=== PATIENT | female | born 1960 | race Caucasian/White ===

== ENCOUNTER 2018-01-12 22:08 | Observation (INO) | payer OTHER, SELFPAY ==
[2018-01-12 22:19] VITALS: BP 172/69; PULSE 94; RESP 16; TEMP 37.7; O2SAT 98; BMI 29.1
--- NOTE | 2018-01-12 22:25 | DI.RAD.S_ITS ---
PROCEDURE: XR ANKLE LT MIN 3V INDICATIONS: injury TECHNIQUE: 30 views of the ankle were acquired. COMPARISON: [facility], CR, XR FOOT LT MIN 3V, 01/12/2018, 22:07. FINDINGS: Bones: There is a transverse fracture involving the medial malleolus was 1.3 cm distal displacement. A spiral fracture is noted in the distal fibula with 1.2 cm lateral displacement.. Ankle mortise is disrupted with lateral subluxation of talus and widening of the tibiotalar joint space medially. No suspicious bony lesions. Soft tissues: Small tibiotalar joint effusion. Achilles tendon appears normal. Soft tissue swelling is present. IMPRESSION: 1. Spiral fracture distal fibula at the ankle mortise. 2. Displaced medial malleolus fracture. 3. Lateral subluxation of talus at the tibiotalar joint with widening of joint space medially. Dictated by: Lukas Wooten M.D. on 01/13/2018 at 9:20 Approved by: Lukas Wooten M.D. on 01/13/2018 at 9:24
--- NOTE | 2018-01-12 22:26 | DI.RAD.S_ITS ---
PROCEDURE: XR FOOT LT MIN 3V INDICATIONS: injury TECHNIQUE: 3 views of the foot were acquired. COMPARISON: None. FINDINGS: Bones: Medial and lateral malleolar fractures are present. No suspicious bony lesions. Soft tissues: Small tibiotalar joint effusion. Achilles tendon appears normal. IMPRESSION: Medial and lateral malleolar fractures. Please see left ankle x-ray for detail. Dictated by: Lukas Wooten M.D. on 01/13/2018 at 10:03 Approved by: Lukas Wooten M.D. on 01/13/2018 at 10:04
--- NOTE | 2018-01-12 23:25 | ED.LOWEXIN ---
HPI - Extremity Injury (Lower) General Chief Complaint: Extremity Injury, Lower Stated Complaint: LEFT ANKLE INJURY Time Seen by Provider: 01/12/18 22:13 Source: patient and family Mode of arrival: wheelchair Limitations: no limitations History of Present Illness HPI Narrative: Patient states she was walking on a muddy past at her house, when she slipped and twisted her ankle. As she fell, the patient's states he heard a loud report, ?like a 22 rifle? and heard the patient screaming. Patient states when she looked at her foot and ankle, the foot was at a 90 degree angle to the joint. She reduced the ankle herself, and called EMS. Patient was placed in a SHARON splint by EMS and sent on the [place] from [facility] to here. Patient denies any other injuries. She denies prior injury to the ankle itself. MD complaint: ankle injury (Left) Onset (ago): hour(s) Injury: Left: ankle Type of Injury: inversion Place: home Severity scale (1-10): 10 Related Data Previous Rx's Medication Instructions Recorded aspirin 325 mg PO DAILY #42 tab 01/13/18 docusate sodium [Colace] 100 mg PO BID #30 cap 01/13/18 ondansetron 4 mg PO Q8-12H PRN #7 tab 01/13/18 oxycodone 5 mg PO Q4H PRN #40 tab 01/13/18 walker #1 each 01/14/18 Allergies Allergy/AdvReac Type Severity Reaction Status Date / Time codeine AdvReac Nausea Verified 01/13/18 14:30 Review of Systems Review of Systems All systems reviewed & are unremarkable except as noted in HPI and below Constitutional Denies chills, Denies fever(s), Denies lethargy and Denies weakness Eyes Denies change in vision, Denies eye discharge, Denies irritation and Denies loss of vision ENT Ears, Nose, Mouth, and Throat: Denies change in voice, Denies neck pain and Denies sore throat Cardiovascular Denies chest pain, Denies irregular heart rhythm, Denies lightheadedness, Denies palpitations, Denies dyspnea, Denies dyspnea on exertion and Denies orthopnea Respiratory Denies cough, Denies dyspnea, Denies dyspnea on exertion and Denies wheezing Gastrointestinal Gastrointestinal: Denies abdominal pain, Denies change in bowel habits, Denies diarrhea, Denies nausea and Denies vomiting Genitourinary Denies hematuria, Denies flank pain, Denies urinary incontinence and Denies urinary urgency Musculoskeletal Reports joint swelling (With pain, left ankle.) and Denies neck pain Integumentary/Breasts Denies pruritus, Denies erythema, Denies rash and Denies wounds Neurologic Denies confusion, Denies loss of vision and Denies weakness Psychiatric Denies anxiety, Denies confusion, Denies depression, Denies homicidal ideation and Denies suicidal ideation Endocrine Denies palpitations Hematologic/Lymphatic Denies easy bruising Allergic/Immunologic Denies wheezing [facility] Medical History Closed trimalleolar fracture of left ankle (Acute) Diabetes type 2, controlled (Acute) Diabetes type 2, controlled (Acute) Pancreatitis (Acute) Surgical History History of bowel resection (Acute) Social History household members: spouse Smoking Status: Never smoker alcohol intake: never Exam Initial Vital Signs Initial Vital Signs: Vital Signs Temperature 99.8 F H 01/12/18 22:19 Pulse Rate 94 H 01/12/18 22:19 Respiratory Rate 16 01/12/18 22:19 Blood Pressure 172/69 H 01/12/18 22:19 Pulse Oximetry 98 01/12/18 22:19 Const General: cooperative and well developed Nutritional Appearance: well nourished Orientation: alert, awake, oriented x3 and not confused [facility] Head: normocephalic and atraumatic Ears: external ears normal Nose: external nose normal and No nasal discharge Face and sinus: face symmetric and No dry mucous membranes Mouth: oral mucosae normal and moist mucous membranes Eyes General: appearance normal, both eyes and all related structures Eyelids: eyelids normal Conjunctivae: conjunctivae normal Sclera: sclerae normal Pupils: PERRL EOM: EOM intact bilaterally Neck Neck: normal visual inspection, trachea midline, No lymphadenopathy, No midline deformity and No JVD Lymphatic: No lymphedema Chest Chest: normal inspection of the chest Resp Effort & Inspection: normal respiratory effort, able to speak in complete sentences, no respiratory distress and no use of accessory muscles Auscultation: clear to auscultation bilaterally, no rales, no rhonchi and no wheezes Cardio Rate: regular rate Rhythm: regular rhythm Heart Sounds: no click, no gallops, no murmurs and no rubs Pulses: normal peripheral pulses GI Inspection: non-distended Palpation: soft, no hepatosplenomegaly, No guarding, No pulsatile mass and No tender Auscultation: normal bowel sounds Back/Spine/Pelvis Back: No CVA tenderness Cervical Spine: cervical ROM normal and No pain with cervical ROM Thoracic/Lumbar Spine: thoracic and lumbar spine normal to inspection Skin General: no rashes or lesions noted, No jaundice and No petechiae Neuro General: alert, oriented x3, gait normal and no focal motor deficits Speech: speech normal Extrem General: No normal to inspection, No full ROM and no calf tenderness Other: patient has tenderness, edema, and decreased range of motion of her left ankle. She has intact dorsalis pedis and posterior tibial pulses. She is able to wiggle her toes. She has intact sensation in her toes. Psych Appearance: well kempt Mental Status: mental status grossly normal Attitude: cooperative Thought Content: normal and suicidality Judgment: judgment good Course Course Narrative: Patient was stable throughout her stay in the emergency department. She was worked up for her ankle injury, and found to have a bimalleolar fracture with shifting of the mortise. I did speak with Dr. Piper, who is on-call for Orthopedics, and he agreed to admit the patient to his service. I discussed this with the patient and her , who were agreeable to the plan. Patient was treated symptomatically for her pain, and placed in a bulky Rhodes splint. Preoperative chest x-ray and EKG were also performed in the emergency department. Orders Ordered: Discontinued Medications Acetaminophen (Tylenol) 975 mg PO TID [facility] Last Admin: 01/14/18 14:16 Dose: 975 mg Admin: 01/14/18 08:33 Dose: 975 mg Admin: 01/13/18 21:39 Dose: 975 mg Aspirin (Aspirin Ec) 325 mg PO DAILY [facility] Last Admin: 01/14/18 08:34 Dose: 325 mg Benzocaine (Cepacol Lozenge) 1 each PO PRN PRN PRN Reason: Sore Throat Dextrose (D50w) 25 gm IV PRN PRN PRN Reason: Hypoglycemia Docusate Sodium (Colace) 100 mg PO BID [facility] Last Admin: 01/14/18 08:34 Dose: 100 mg Admin: 01/13/18 21:39 Dose: 100 mg Fentanyl (Sublimaze) 50 mcg IV NOW ONE Stop: 01/13/18 15:41 Last Admin: 01/13/18 15:18 Dose: 50 mcg Fentanyl (Sublimaze) 50 mcg IV Q5MIN PRN PRN Reason: Pain, Moderate (4-6) Hydromorphone HCl (Dilaudid) 0.5 mg IV Q5MIN PRN PRN Reason: Pain, Moderate (4-6) Hydroxyzine Pamoate (Vistaril) 25 mg PO NOW PRN PRN Reason: Pain, Mild (1-3) Last Admin: 01/13/18 19:11 Dose: 25 mg Sodium Chloride (Normal Saline 0.9%) 1,000 mls @ 1,000 mls/hr IV BOLUS ONE Stop: 01/13/18 00:53 Last Admin: 01/13/18 02:46 Dose: Sodium Chloride (Normal Saline 0.9%) 1,000 mls @ 125 mls/hr IV CONT [facility] Last Admin: 01/13/18 09:03 Dose: 125 mls/hr Infusion: 01/13/18 09:03 Dose: 125 mls/hr Admin: 01/13/18 01:25 Dose: 125 mls/hr Cefazolin Sodium/Dextrose (Ancef) 2 gm in 100 mls @ 200 mls/hr IV NOW ONE Stop: 01/13/18 09:05 Last Admin: 01/13/18 15:35 Dose: 200 mls/hr Lactated Ringer's (Lactated Ringers) 1,000 mls @ 42 mls/hr IV CONT [facility]Y Last Infusion: 01/13/18 19:21 Dose: 42 mls/hr Admin: 01/13/18 19:21 Dose: 42 mls/hr Infusion: 01/13/18 18:30 Dose: 42 mls/hr Admin: 01/13/18 14:36 Dose: 42 mls/hr Cefazolin Sodium/Dextrose (Ancef) 2 gm in 100 mls @ 200 mls/hr IV Q8H [facility] Stop: 01/13/18 08:29 Last Admin: 01/13/18 20:42 Dose: Admin: 01/13/18 20:42 Dose: Insulin Aspart (Novolog Flexpen) 0 unit SUBCUT [facility]; Protocol Last Admin: 01/14/18 12:14 Dose: 4 unit Admin: 01/14/18 08:32 Dose: 2 unit Admin: 01/13/18 21:38 Dose: 1 unit Meperidine HCl (Demerol) 25 mg IV Q5MIN PRN PRN Reason: Pain or shivering Metoclopramide HCl (Reglan) 10 mg IV NOW PRN PRN Reason: Nausea And Vomiting Midazolam HCl (Versed) 1 mg IV NOW ONE Stop: 01/13/18 15:41 Last Admin: 01/13/18 15:18 Dose: 1 mg Morphine Sulfate (Morphine) 4 mg IV Q4HR PRN PRN Reason: Pain, Moderate (4-6) Last Admin: 01/13/18 05:27 Dose: 4 mg Admin: 01/13/18 01:25 Dose: 4 mg Morphine Sulfate (Morphine) 2 mg IV Q2HR PRN PRN Reason: Pain, Moderate (4-6) Last Admin: 01/13/18 13:13 Dose: 2 mg Admin: 01/13/18 11:19 Dose: 2 mg Admin: 01/13/18 09:03 Dose: 2 mg Morphine Sulfate (Morphine) 0.5 mg IV Q1HR PRN PRN Reason: Pain, Mild (1-3) Last Admin: 01/14/18 07:50 Dose: 0.5 mg Admin: 01/14/18 06:36 Dose: 0.5 mg Naloxone HCl (Narcan) 0.2 mg IV Q2MIN PRN PRN Reason: Opiate Reversal Ondansetron HCl (Zofran Odt) 4 mg PO NOW ONE Stop: 01/12/18 23:28 Last Admin: 01/12/18 23:37 Dose: 4 mg Ondansetron HCl (Zofran) 4 mg IV Q4HR PRN PRN Reason: Nausea And Vomiting Ondansetron HCl (Zofran) 4 mg IV NOW PRN PRN Reason: Nausea And Vomiting Ondansetron HCl (Zofran Odt) 4 mg PO Q4HR PRN PRN Reason: Nausea And Vomiting Ondansetron HCl (Zofran) 4 mg IV Q4HR PRN PRN Reason: Nausea And Vomiting Oxycodone HCl (Percolone) 5 mg PO Q3HR PRN PRN Reason: Pain, Moderate (4-6) Last Admin: 01/14/18 04:50 Dose: 5 mg Admin: 01/14/18 01:44 Dose: 5 mg Oxycodone HCl (Percolone) 10 mg PO Q3HR PRN PRN Reason: Pain, Severe (7-10) Last Admin: 01/14/18 14:16 Dose: 10 mg Admin: 01/14/18 11:24 Dose: 10 mg Admin: 01/14/18 08:35 Dose: 10 mg Oxycodone/Acetaminophen (Percocet 5/325) 2 tab PO NOW ONE Stop: 01/12/18 23:28 Last Admin: 01/12/18 23:37 Dose: 2 tab Sodium Biphosphate/Sodium Phosphate (Fleet Enema) 1 each HI PRN PRN PRN Reason: Constipation Vital Signs - 8 hr 01/12/18 22:19 Temperature 99.8 F H Pulse Rate 94 H Respiratory Rate 16 Blood Pressure 172/69 H Pulse Oximetry 98 MDM - Extremity Injury (Lower) Medical Records Attestation: I reviewed the patient's medical records. Lab Data Attestation: I reviewed the patient's lab results. Result diagrams: 01/13/18 00:35 01/13/18 00:35 Lab Results 01/13/18 01/13/18 01/13/18 Range/Units 00:35 00:35 11:11 WBC 12.9 H (4.5-11.0) X10^3/uL RBC 4.51 (4.0-5.2) X10^6/uL Hgb 13.3 (12.0-16.0) g/dL Hct 39.1 (36-46) % MCV 86.8 (80-100) fL MCH 29.5 (26-34) PG MCHC 34.0 (30-36) % RDW 13.0 (11.6-14.8) % Plt Count 354 (150-400) X10^3/uL Neut % (Auto) 64.8 (50-75) % Lymph % (Auto) 26.9 (25-40) % Barry % (Auto) 6.9 (3-14) % Eos % (Auto) 0.7 L (2-4) % Baso % (Auto) 0.7 (0-2) % Neut # (Auto) 8300 H (4203-4528) /uL Sodium 141 (137-145) mmol/L Potassium 4.0 (3.4-5.1) mmol/L Chloride 106 (98-107) mmol/L Carbon Dioxide 23 (22-32) mmol/L BUN 19 H (7-17) mg/dL Creatinine 0.70 (0.52-1.04) mg/dL Estimated GFR > 60.0 (>60) mL/min BUN/Creatinine Ratio 27.1 H (6-22) Glucose 164 H (70-100) mg/dL Hemoglobin A1c 7.5 H (4.0-6.0) % Calcium 9.7 (8.4-10.2) mg/dL Total Bilirubin 0.6 (0.2-1.3) mg/dL AST 27 (14-36) IU/L ALT 27 (9-52) IU/L Alkaline Phosphatase 85 (38-126) U/L Total Protein 7.1 (6.3-8.2) g/dL Albumin 4.4 (3.5-5.0) g/dL Globulin 2.7 (1.7-4.1) g/dL Albumin/Globulin Ratio 1.6 (1.0-2.8) Point of Care Testing Glucose POC 308 Imaging Data Left ankle x-ray: Attestation: I personally reviewed and interpreted this imaging study as follows: My impression: left ankle bimalleolar fracture Radiologist's impression: PROCEDURE: XR ANKLE LT MIN 3V INDICATIONS: injury TECHNIQUE: 30 views of the ankle were acquired. COMPARISON: [facility], CR, XR FOOT LT MIN 3V, 01/12/2018, 22:07. FINDINGS: Bones: There is a transverse fracture involving the medial malleolus was 1.3 cm distal displacement. A spiral fracture is noted in the distal fibula with 1.2 cm lateral displacement.. Ankle mortise is disrupted with lateral subluxation of talus and widening of the tibiotalar joint space medially. No suspicious bony lesions. Soft tissues: Small tibiotalar joint effusion. Achilles tendon appears normal. Soft tissue swelling is present. IMPRESSION: 1. Spiral fracture distal fibula at the ankle mortise. 2. Displaced medial malleolus fracture. 3. Lateral subluxation of talus at the tibiotalar joint with widening of joint space medially. Dictated by: Lukas Wooten M.D. on 01/13/2018 at 9:20 Approved by: Lukas Wooten M.D. on 01/13/2018 at 9:24 left foot x-ray: Attestation: I personally reviewed and interpreted this imaging study as follows: Radiologist's impression: PROCEDURE: XR FOOT LT MIN 3V INDICATIONS: injury TECHNIQUE: 3 views of the foot were acquired. COMPARISON: None. FINDINGS: Bones: Medial and lateral malleolar fractures are present. No suspicious bony lesions. Soft tissues: Small tibiotalar joint effusion. Achilles tendon appears normal. IMPRESSION: Medial and lateral malleolar fractures. Please see left ankle x-ray for detail. Dictated by: Lukas Wooten M.D. on 01/13/2018 at 10:03 Approved by: Lukas Wooten M.D. on 01/13/2018 at 10:04 Chest x-ray: Attestation: I personally reviewed and interpreted this imaging study as follows: My impression: negative Radiologist's impression: PROCEDURE: XR CHEST 1V INDICATIONS: pre-op chest xray TECHNIQUE: One view of the chest was acquired. COMPARISON: None. FINDINGS: Surgical changes and devices: None. Lungs and pleura: No pleural effusions or pneumothorax. Lungs are clear. Mediastinum: Mediastinal contours appear normal. Heart size is normal. Bones and chest wall: No suspicious bony lesions. Overlying soft tissues appear unremarkable. IMPRESSION: No acute cardiopulmonary disease. Dictated by: Lukas Wooten M.D. on 01/13/2018 at 9:59 Approved by: Lukas Wooten M.D. on 01/13/2018 at 9:59 ECG Data Attestation: I personally reviewed and interpreted this ECG as follows: ( see below) Prior ECG tracings: not available for review Interpretation: 12 lead EKG performed on January 13, 2018 at 12:16 a.m.: Regular ventricular rhythm with a rate of 90 beats per minute HI intervals 149 milliseconds QRS duration 92 millisecond QTC interval 421 milliseconds axis normal interpretation: Normal sinus rhythm; normal EKG interpreted by ED MD Discharge Plan Departure Patient Disposition: Admitted as Observation Clinical Impression: Bimalleolar fracture of left ankle Discharge Date/Time: 01/12/18 23:54 Interventions: ED Discharge Assessment Last Done: 01/13/18 01:41 Admit Date/Time: 01/12/18 23:51 Admit Provider: Terrie Piper
[2018-01-12] MEDS: OXYCODONE/ACETAMINOPHEN 5/325 TABLET 2 TAB PO (23:37)
[2018-01-12] MEDS: ONDANSETRON 4 MG ODT PO (23:37)
--- NOTE | 2018-01-12 23:54 | DI.RAD.S_ITS ---
PROCEDURE: XR CHEST 1V INDICATIONS: pre-op chest xray TECHNIQUE: One view of the chest was acquired. COMPARISON: None. FINDINGS: Surgical changes and devices: None. Lungs and pleura: No pleural effusions or pneumothorax. Lungs are clear. Mediastinum: Mediastinal contours appear normal. Heart size is normal. Bones and chest wall: No suspicious bony lesions. Overlying soft tissues appear unremarkable. IMPRESSION: No acute cardiopulmonary disease. Dictated by: Lukas Wooten M.D. on 01/13/2018 at 9:59 Approved by: Lukas Wooten M.D. on 01/13/2018 at 9:59
[2018-01-13] VITALS (16 sets, daily range): BP systolic 126–157; BP diastolic 64–98; PULSE 79–109; RESP 11–18; TEMP 36.1–37.6; O2SAT 93–99; BMI 30.4
--- NOTE | 2018-01-13 | DI.RAD.S_ITS ---
PROCEDURE: XR TIBIA FIBULA RT 2V INDICATIONS: fracture TECHNIQUE: 2 views of the tibia and fibula were acquired. COMPARISON: None. FINDINGS: Bones: There is acute transverse fracture involving medial malleolus. Acute oblique fracture involving distal fibular shaft is also seen. There is disruption of ankle mortise with slight posterior and lateral subluxation of the talar dome in relation to tibial plafond. No proximal tibial or fibular fracture is seen. Soft tissues: No suspicious soft tissue calcifications or masses. IMPRESSION: Acute displaced fractures involving medial malleolus and distal fibular shaft with disruption of ankle mortise and subluxation at tibiotalar joint as above. Dictated by: Danny Anderson M.D. on 01/13/2018 at 9:32 Approved by: Danny Anderson M.D. on 01/13/2018 at 9:34
--- NOTE | 2018-01-13 | DI.RAD.S_ITS ---
PROCEDURE: XR ANKLE LT 2V INDICATIONS: LEFT ANKLE FRACTURE REPAIR TECHNIQUE: 4 intraoperative fluoroscopic views of the ankle were acquired. COMPARISON: [facility], CR, XR ANKLE LT MIN 3V, 01/12/2018, 22:04. FINDINGS: Bones: There is internal fixation of distal fibular shaft and medial malleolus. There is also fixation of distal tibial fibular syndesmosis. Ankle alignment is anatomic. IMPRESSION: Internal fixation of medial malleolus and distal fibular shaft under fluoroscopic guidance. Dictated by: Danny Anderson M.D. on 01/13/2018 at 18:29 Approved by: Danny Anderson M.D. on 01/13/2018 at 18:31
--- NOTE | 2018-01-13 | DI.CT.S_ITS ---
PROCEDURE: CT LE LT W CON INDICATIONS: preop planning ankle fracture TECHNIQUE: Noncontrast 1-1.5 mm axial sections acquired from above the tibiotalar joint to the bottom of the calcaneus, with coronal and sagittal reformats. COMPARISON: [facility], CR, XR TIBIA FIBULA LT 2V, 01/13/2018, 9:02. FINDINGS: Image quality: Excellent. Bones: Medial malleolar fracture is seen, with lateral displacement of the distal dominant fragment measuring approximately 5 mm. Associated gross articular tibiotalar surface irregularity. Lateral malleolar fracture with posterolateral displacement of the dominant fracture fragment. Posterior malleolar fracture is seen with mild displacement and extension to the distal tibial articular surface. The talar dome appears grossly intact. There is subluxation of the tibiotalar joint and gross articular surface incongruity. Incidental unfused accessory navicular. Soft tissues: Circumferential subcutaneous swelling is seen. There are numerous sub-5 mm fracture fragments seen in and about the tibiotalar joint. Alignment of the subtalar joint appears grossly anatomic. No definite widening of the distal tibiofibular syndesmotic interval. IMPRESSION: Trimalleolar fractures as above with subluxation of the tibiotalar joint and gross articular surface incongruity. Dictated by: Roosevelt Lr M.D. on 01/13/2018 at 10:26 Approved by: Roosevelt Lr M.D. on 01/13/2018 at 10:31
[2018-01-13 00:44] LABS: Add Manual Diff / Slide Review NO; Basophils Percent Auto 0.7 % (0-2); Eosinophils Percent Auto 0.7 % (2-4); Hematocrit 39.1 % (36-46); Hemoglobin 13.3 g/dL (12.0-16.0); Lymphocytes Percent Auto 26.9 % (25-40); Mean Corpuscular Hemoglobin 29.5 PG (26-34); Mean Corpuscular Volume 86.8 fL (80-100); Monocytes Percent Auto 6.9 % (3-14); Neutrophils Absolute Auto 8300 /uL (3000-5900); Neutrophils Percent Auto 64.8 % (50-75); Platelet Count 354 X10^3/uL (150-400); Red Blood Cell Count 4.51 X10^6/uL (4.0-5.2); White Blood Cell Count 12.9 X10^3/uL (4.5-11.0)
--- NOTE | 2018-01-13 00:48 | PC.NURSE ---
posterior and stirrup splint applied. padded between skin and splint. pos c/s. provider inspected and approved splint. Pt tolerated well. pt stated it feels better for sure.
[2018-01-13 00:49] LABS: Alanine Aminotransferase 27 IU/L (9-52); Albumin 4.4 g/dL (3.5-5.0); Albumin Globulin Ratio 1.6 (1.0-2.8); Alkaline Phosphatase 85 U/L (38-126); Aspartate Aminotransferase 27 IU/L (14-36); BUN Creatinine Ratio 27.1 (6-22); Bilirubin Total 0.6 mg/dL (0.2-1.3); Blood Urea Nitrogen 19 mg/dL (7-17); Calcium 9.7 mg/dL (8.4-10.2); Carbon Dioxide 23 mmol/L (22-32); Chloride 106 mmol/L (98-107); Estimated Glomerular Filt Rate > 60.0 mL/min (>60); Globulin 2.7 g/dL (1.7-4.1); Glucose 164 mg/dL (70-100); HEMOLYSIS 29 (0-50); Sodium 141 mmol/L (137-145); Total Protein 7.1 g/dL (6.3-8.2)
[2018-01-13] MEDS: MORPHINE 2 MG/ML INJ 4 MG IV ×2 (01:25→05:27)
[2018-01-13] MEDS: SODIUM CHLORIDE 0.9% 1,000 ML 125 ML IV ×2 (01:25→09:03)
[2018-01-13] MEDS: MORPHINE 2 MG/ML INJ IV ×3 (09:03→13:13)
--- NOTE | 2018-01-13 09:07 | CM.DANOTE ---
DCP: Case received, EMR reviewed and met with patient. Introduced self and role. DCP template completed with information currently available. Patient is a 57 year old female who admitted yesterday evening to the care of the hospitalist team. PCP: Dr. Rahman. Payer: confirmed: [facility]. Patient had a fall outside of her home, resulting in fracture of her left ankle. Lives on [address] with her , has sons that live close by as well. Patient alert and oriented, was in room when this case coordinator met her. Patient is having ankle surgery this afternoon. P: DCP to continue to assess, after results of surgery, may need home health P.T, if unable to go to outpatient. Giselle Pope RN/First Line Supervisor
--- NOTE | 2018-01-13 09:11 | P.HP_ITS ---
History of Present Illness Date Patient Seen: 01/13/18 Time Patient Seen: 08:40 Chief complaint: LEFT ANKLE INJURY Narrative: Patient is a 57-year-old female from [facility] that slipped on wet grass while caring her dog on a steep slope yesterday evening approximately 6:00 p.m. per ED report the patient's heard a scream and allowed the noise and found the patient had fallen. She had a gross deformity of her left ankle with the foot rotated out and 90? per report. She states she moved this back into position. She was seen by the EMS services on [facility] evaluated thought to have a ankle fracture and was splinted. She came by car over the [place] to the [facility] Emergency Room and was evaluated and found to have a bimalleolar ankle fracture dislocation. My partner bonbon dipper Dr. Piper was consulted and the patient was admitted to the hospital, and maintained NPO after midnight. I was asked to evaluate the patient's closed ankle fracture and assume management. The patient endorses acute pain and deformity at the time of injury to her left ankle. She denies any injury to any other extremity and denies any pain, shortness of breath, chest pain, abdominal pain, numbness or tingling. She denies any headaches. She does state her mouth is a little dry. She denies any pain at the knee on the left side and states all of her pain is down by the ankle. She does endorse swelling. She endorses a past medical history significant for diabetes type 2 however she states this is controlled on diet and exercise. She did for short time takes metformin but could not tolerate side effects. She also has a past medical history for bowel resections times to several years ago she does not report any current abdominal pain or difficulties. She denies any past history of a blood clot or embolisms or coagulopathies. Does not take any anticoagulants. She states she takes no regular medications at home. She does have some nausea with codeine but otherwise no allergies. Rest and elevation ice and pain medications help her pain. She is hoping to be discharged home after surgery. She has help available at home including her who stayed with her overnight. Patient History Medical History Closed trimalleolar fracture of left ankle (Acute) Diabetes type 2, controlled (Acute) Diabetes type 2, controlled (Acute) Pancreatitis (Acute) Surgical History History of bowel resection (Acute) Comment: bowel resections x2 Family & Social History Family History: Reviewed 01/13/18 by Yudith Babb MD Family history unavailable: No Social History: household members spouse,family Prior Living Arrangements House Safety & Behavioral: Feels Safe in Current Yes Environment Suicidal Ideation Description None Tobacco & Substance use: Smoking Status Never smoker alcohol intake never Substance Use Type does not use Meds Home Medications Medication Instructions Recorded Confirmed Type aspirin 325 mg PO DAILY #42 tab 01/13/18 Rx docusate sodium [Colace] 100 mg PO BID #30 cap 01/13/18 Rx ondansetron 4 mg PO Q8-12H PRN #7 tab 01/13/18 Rx oxycodone 5 mg PO Q4H PRN #40 tab 01/13/18 Rx Allergies Allergy/AdvReac Type Severity Reaction Status Date / Time codeine AdvReac Nausea Verified 01/13/18 14:30 Review of Systems Constitutional Constitutional: Reports system reviewed and no additional complaints, except as documented Eyes Comments: Denies changes in vision ENT Ears, Nose, Mouth, and Throat: Yes system reviewed; no additional complaints, except as documented Cardiovascular Comments: Denies shortness of breath denies chest pain Respiratory Comments: Denies shortness of breath denies wheezing Gastrointestinal Comments: History 2 bowel resection no issues today. No abdominal pain. Genitourinary Comments: No incontinence Musculoskeletal Musculoskeletal: Reports as per HPI Comments: Denies other aches and pains or injuries except for with exception to left ankle Integumentary/Breasts Comments: No skin lesions Neurologic Comments: Denies numbness tingling radiculopathy or neuropathy Psychiatric Psychiatric: Reports system reviewed and no additional complaints, except as documented Endocrine Comments: History of diabetes type 2 controlled, no medications. Tried metformin but cannot tolerate side effects Hematologic/Lymphatic Hematologic/Lymphatic: Reports system reviewed and no additional complaints, except as documented Allergic/Immunologic Allergic/Immunologic: Reports system reviewed and no additional complaints, except as documented Exam Vital Signs (past 8 hours): - 01/13/18 01:54 01/13/18 05:30 Temperature 99.6 F 99.1 F Pulse Rate 91 H 84 Respiratory Rate 16 18 Blood Pressure 143/98 H 131/72 Pulse Oximetry 99 95 Oxygen Delivery Method Room Air Narrative Exam Narrative: Patient is alert and oriented female in no acute distress she appears stated age. Oriented to person place time Normocephalic atraumatic Respiratory exam lungs are clear to auscultation bilaterally breathing is unlabored on room air Cardiac exam: Regular rate and rhythm no murmur Abdominal exam: Midline vertical scar well healed abdomen soft nontender, nondistended Musculoskeletal examination: Full range of motion and no tenderness to palpation of the bilateral upper extremities and right lower extremity. No bruising or ecchymosis no skin lesions. Sensation intact to light touch in all distributions and motor strength 5/5 in all muscle distributions. Painless neck range of motion. Left lower extremity is in a splint. No pain or swelling about the knee no redness erythema or signs or symptoms of infection. No pain with proximal tib- fib squeeze. Toes are well perfused with brisk capillary refill less than 3 sec. Palpable dorsalis pedis pulse. Swelling of the left ankle without skin lesion. Compartments compressible. Sensation grossly intact to light touch in superficial peroneal, deep peroneal, sural, saphenous nerve distributions Objective Imaging X-ray left ankle: My impression: Three views left ankle AP, mortise, lateral demonstrate a displaced ankle fracture dislocation with medial malleolar fracture and spiral fracture of the distal fibula with lateral displacement of the talus . there is irregualrity at the postop tibia which may represent a small posterior malleolus fracture. Radiologist's impression: IMPRESSION: 1. Spiral fracture distal fibula at the ankle mortise. 2. Displaced medial malleolus fracture. 3. Lateral subluxation of talus at the tibiotalar joint with widening of joint space medially. Dictated by: Lukas Wooten M.D. on 01/13/2018 at 9:20 Approved by: Lukas Wooten M.D. on 01/13/2018 at 9:24 ECG: pending X-rays left tib-fib: My impression: AP and lateral views left tib-fib displaced trimalleolar ankle fracture with lateral subluxation of the mortise. No proximal tib-fib fracture Radiologist's impression: IMPRESSION: Acute displaced fractures involving medial malleolus and distal fibular shaft with disruption of ankle mortise and subluxation at tibiotalar joint as above. Dictated by: Danny Anderson M.D. on 01/13/2018 at 9:32 Approved by: Danny Anderson M.D. on 01/13/2018 at 9:34 Left foot x-ray: My impression: Three views left foot AP oblique and lateral demonstrate no obvious fractures of foot there is an accessory navicular bone and limited imaging of the known trimalleolar ankle fracture. CT scan left lower extremity: My impression: Trimalleolar ankle fracture with small displaced fragments within the tibiotalar joint. Minimal displacement of the small posterior lateral posterior malleolus fragment. Displaced lateral malleolus fracture with comminution. Displaced medial malleolus fracture. Radiologist's impression: IMPRESSION: Trimalleolar fractures as above with subluxation of the tibiotalar joint and gross articular surface incongruity. Dictated by: Roosevelt Lr M.D. on 01/13/2018 at 10:26 Labs Result Diagrams: 01/13/18 00:35 01/13/18 00:35 Labs: Laboratory Results - last 24 hr 01/13/18 01/13/18 00:35 00:35 WBC 12.9 H RBC 4.51 Hgb 13.3 Hct 39.1 MCV 86.8 MCH 29.5 MCHC 34.0 RDW 13.0 Plt Count 354 Neut % (Auto) 64.8 Lymph % (Auto) 26.9 [place] % (Auto) 6.9 Eos % (Auto) 0.7 L Baso % (Auto) 0.7 Neut # (Auto) 8300 H Sodium 141 Potassium 4.0 Chloride 106 Carbon Dioxide 23 BUN 19 H Creatinine 0.70 Estimated GFR > 60.0 BUN/Creatinine Ratio 27.1 H Glucose 164 H Calcium 9.7 Total Bilirubin 0.6 AST 27 ALT 27 Alkaline Phosphatase 85 Total Protein 7.1 Albumin 4.4 Globulin 2.7 Albumin/Globulin Ratio 1.6 Assessment & Plan (1) Diabetes type 2, controlled: Problem details: Will monitor blood glucose. Patient is not currently take any medication will be on diabetic diet. hemoglobin A1c 7.5. Discussed that diabetic status is a risk factor for wound healing and bone healing problems and may require prolonged nonweightbearing status. Sliding-scale insulin in the hospital patient will follow up with PCP Dr. Rahman for diabetic care. Patient counseled on the importance of glycemic control. Current visit: Yes Status: Acute (2) Closed trimalleolar fracture of left ankle: Problem details: Left closed trimalleolar ankle fracture. Status post open reduction internal fixation. Nonweightbearing left lower extremity times 12 weeks for diabetic ankle fracture. Will start 325 mg aspirin once daily on postop day 1. Will have oxycodone and Tylenol for pain control. Will be up with physical therapy postop day 1 and discharged home postop day 1. Follow-up in [address] Babb Current visit: Yes Status: Acute Plan: Assessment/Plan Narrative: On evaluation of the available imaging I suspect the patient has a trimalleolar ankle fracture dislocation therefore a CT scan was ordered to quantify the posterior malleolus fragment for operative planning. Based on the small fracture on the CT scan my plan would be open reduction internal fixation of the trimalleolar fracture without posterior lip. The Patient is NPO and will continue with elevation and bed rest while on the floor. She will be brought to the operating room when available to undergo open reduction internal fixation of the left trimalleolar ankle fracture dislocation. Once satisfactorily recovered she will be discharged home. She will be nonweightbearing on the left lower extremity. She will follow up in 2 weeks for suture removal. On postoperative day 1 she will start aspirin 325 mg daily for DVT prophylaxis. She does not have any previous history of blood clots or coagulopathy. Her site of surgery was marked Time Spent With Patient Time with patient: less than 15 minutes Quality VTE Deep Vein Thrombosis/Pulmonary Embolism Present on Admission: No
--- NOTE | 2018-01-13 09:11 | PM.DS.1 ---
History of Present Illness Date Patient Seen: 01/13/18 Time Patient Seen: 08:33 Chief complaint: LEFT ANKLE INJURY Narrative: Patient is a 57-year-old female sustained a closed trimalleolar ankle fracture dislocation on the night of admission. She is indicated for operative fixation.jaleel is a 57-year-old female from [facility] that slipped on wet grass while caring her dog on a steep slope yesterday evening approximately 6:00 p.m. per ED report the patient's heard a scream and allowed the noise and found the patient had fallen. She had a gross deformity of her left ankle with the foot rotated out and 90? per report. She states she moved this back into position. She was seen by the EMS services on [facility] evaluated thought to have a ankle fracture and was splinted. She came by car over the [place] to the [facility] Emergency Room and was evaluated and found to have a bimalleolar ankle fracture dislocation. My partner net solutions architect Dr. Piper was consulted and the patient was admitted to the hospital, and maintained NPO after midnight. I was asked to evaluate the patient's closed ankle fracture and assume management. The patient endorses acute pain and deformity at the time of injury to her left ankle. She denies any injury to any other extremity and denies any pain, shortness of breath, chest pain, abdominal pain, numbness or tingling. She denies any headaches. She does state her mouth is a little dry. She denies any pain at the knee on the left side and states all of her pain is down by the ankle. She does endorse swelling. She endorses a past medical history significant for diabetes type 2 however she states this is controlled on diet and exercise. She did for short time takes metformin but could not tolerate side effects. She also has a past medical history for bowel resections times to several years ago she does not report any current abdominal pain or difficulties. She denies any past history of a blood clot or embolisms or coagulopathies. Does not take any anticoagulants. She states she takes no regular medications at home. She does have some nausea with codeine but otherwise no allergies. Rest and elevation ice and pain medications help her pain. She is hoping to be discharged home after surgery. She has help available at home including her who stayed with her overnight. Discharge Providers Date of admission: 01/12/18 23:51 Primary care physician: Lacey Consults: 01/13/18 08:36 Consult to Anesthesiology Routine Comment: Consulting Provider: Anesthesiologist Reason for consultation: Post operative pain managment Discharge provider: Yudith Babb MD Discharge Date: 01/13/18 Summary Discharge Diagnosis: Left trimalleolar ankle fracture Diabetes type 2 Hospital Course: Patient was admitted through the emergency room on January 12, 2018 in the evening for a closed trimalleolar ankle fracture dislocation. She was in the hospital overnight was NPO after midnight and was indicated for surgical fixation of her left unstable ankle fracture dislocation. Following surgical stabilization the patient was admitted to the floor once recovered from anesthesia and tolerating oral pain medication and diet she was trained on crutches and nonweightbearing on the left side. And was discharged home. Her hemoglobin A1c is 7.5. Patient is currently not on any diabetic medication. She will be on sliding scale with a diabetic diet while in the hospital and is encouraged to follow up with her primary care provider for diabetic control. Status at Discharge Cognitive/behavioral status at discharge: Baseline cognitive status. Nonweightbearing on the left side using crutches and/or walker Time Spent with Patient Less than 30 minutes Time spent discussing smoking cessation with patient: 3 to 10 minutes Exam Vital Signs (past 8 hours): - 01/13/18 01:54 01/13/18 05:30 Temperature 99.6 F 99.1 F Pulse Rate 91 H 84 Respiratory Rate 16 18 Blood Pressure 143/98 H 131/72 Pulse Oximetry 99 95 Oxygen Delivery Method Room Air Narrative Exam Narrative: Alert and oriented no acute distress. Lungs clear to auscultation room air Normocephalic atraumatic Cardiac examination regular rate and rhythm no murmur Abdomen exam is soft nontender nondistended Musculoskeletal examination Left lower extremity in the splint. Capillary refill less than 3 sec. Pain controlled. Denies numbness or tingling. Sensation intact. Right lower extremity and bilateral upper extremities full range of motion full strength no numbness or tingling. Sensation intact. Atraumatic Objective Labs Result Diagrams: 01/13/18 00:35 01/13/18 00:35 Labs: Laboratory Results - last 24 hr 01/13/18 01/13/18 00:35 00:35 WBC 12.9 H RBC 4.51 Hgb 13.3 Hct 39.1 MCV 86.8 MCH 29.5 MCHC 34.0 RDW 13.0 Plt Count 354 Neut % (Auto) 64.8 Lymph % (Auto) 26.9 [place] % (Auto) 6.9 Eos % (Auto) 0.7 L Baso % (Auto) 0.7 Neut # (Auto) 8300 H Sodium 141 Potassium 4.0 Chloride 106 Carbon Dioxide 23 BUN 19 H Creatinine 0.70 Estimated GFR > 60.0 BUN/Creatinine Ratio 27.1 H Glucose 164 H Calcium 9.7 Total Bilirubin 0.6 AST 27 ALT 27 Alkaline Phosphatase 85 Total Protein 7.1 Albumin 4.4 Globulin 2.7 Albumin/Globulin Ratio 1.6 Discharge Plan Discharge Plan Patient Disposition: Home Discharge Med Rec/Prescriptions Prescriptions: New aspirin 325 mg tablet 325 mg PO DAILY Qty: 42 RF: 0 docusate sodium [Colace] 100 mg capsule 100 mg PO BID Qty: 30 RF: 0 ondansetron 4 mg tablet,disintegrating 4 mg PO Q8-12H PRN (Reason: nausea and vomiting) Qty: 7 RF: 1 oxycodone 5 mg tablet 5 mg PO Q4H PRN (Reason: pain) Qty: 40 RF: 0 walker Misc Qty: 1 RF: 0 Follow up/Referrals: Yudith Babb MD [Physician] - (Follow up in 2 weeks in the office. Please call to make an appointment.) Provider Discharge Instructions Diet: Carb-consistent/Diabetic Activity: Nonweightbearing left lower extremity. Elevate lower extremity above heart level Skin/Wound/Dressing Care Report to your healthcare provider any signs of infection, such as:: chills, fever, night sweats, increased pain and unusual drainage Dressing: Keep dressing and splint clean dry and intact until follow-up. Elevate lower extremity above heart level Visit Report/Discharge Packet Instructions: DI for Open Reduction Internal Fixation Surgery, Stool Softeners, Ondansetron, Oxycodone, Aspirin Visit Report Forms: Stroke Signs & Symptoms Discharge Data Attending Provider: Terrie Piper Admit Date/Time: 01/12/18 23:51 Discharges patient from system. Discharge Date/Time: 01/14/18 14:30 Quality VTE Deep Vein Thrombosis/Pulmonary Embolism Present on Admission: No
--- NOTE | 2018-01-13 10:17 | PC.NURSE ---
Addendum entered by Helen Leyva R.N. 01/13/18 11:40: pharm - per call to Aliyah in pharmacy, the OR has ancef available in stock and does not need to be sent upstairs. Original Note: Addendum entered by Helen Leyva R.N. 01/13/18 11:24: PAIN - given 2mg iv morphine for lle discomfort 6 on scale 0/10. Original Note: AM NOTE - awake, states lle pain 6 on scale 0/10, splint w/violette wrap over, elev pillow support and ice pack to ankle and lat area, visible toes are pink and pt able to wiggle, npo for surg, in this am and plan for surg around 1300, consent was signed, assisted pt w/bed german to void, later am taken for ct and xr done at bedside, RT in and the ekg done in ER this am was placed in the chart, discussed pain medications with pt and md and dosage changed 2mg q 2 and admin 2mg before xray.
--- NOTE | 2018-01-13 10:55 | PM.PREOP ---
Pre-operative Note Interval Note Pre-op Check: Yes History & Physical Reviewed by Physician and Yes Exam Performed Changes: No
--- NOTE | 2018-01-13 11:03 | P.OP_ITS ---
Operative Date/Time/Diagnoses Date of procedure: 01/13/18 Time of procedure: 16:00 Pre-op diagnosis: 1. Left closed trimalleolar ankle fracture S82.852A 2. Diabetes type 2 E11.9 Post-op diagnosis: same Procedure & Clinicians Procedure: Open reduction internal fixation trimalleolar left ankle fracture without fixation posterior lip CPT code 17801 Same procedure as scheduled: Yes Indications: The patient is a 57-year-old female with a past medical history of diet-controlled diabetes type 2. She sustained a ground level slip and fall last evening and a closed trimalleolar ankle fracture dislocation. The patient has been indicated for operative treatment to restore joint alignment and minimize posttraumatic arthritis. The risks and benefits of the procedure have been discussed with the patient even opportunity to ask questions. The risks of surgery include but are not limited to infection, malunion, nonunion, persistence of pain, wound healing problems, damage to nerves and blood vessels , posttraumatic arthritis, DVT, PE, cardiopulmonary complications and . The patient expressed a thorough understanding of the risks and benefits of surgery and has elected to proceed. Consent was signed today. Patient understands that recovery is variable and may require up to 1 year. The patient also understands that it is critical to strictly elevate the operative leg for the 1st 2 weeks after surgery control swelling and pain. Patient was counseled that no way will be allowed on the surgical leg for minimum of 6 weeks or until the patient is instructed that it is safe to initiate weight- bearing. The patient was initially counseled on cessation of all nicotine progress to promote bone and wound healing. The patient will have DVT prophylaxis with 6 weeks of aspirin starting postop day 1. She has no other history of DVT PE or coagulopathy. Surgeon: Yudith Babb Anesthesia Type: General and Peripheral nerve block Operative Notes Findings: Unstable left trimalleolar ankle fracture was encountered. There were several small joint fragments and these were irrigated and removed from the tibiotalar joint space. A short-segment lateral malleolus fracture was stabilized with a 2.7 lag screw. And a 1/3 tubular neutralization plate was then placed. The medial malleolus fracture was then exposed, again the joint space was irrigated and inspected. There was some scuffing of the talar dome on the medial side this was not full-thickness. The medial malleolar fracture was reduced with 4.0 mm cannulated screws. Syndesmosis was stressed under fluoroscopic guidance and direct visualization this is found to open and was then stabilized by a suture button device. The syndesmosis was then retested and stable. The small posterior malleolus fracture was in acceptable alignment and was treated closed. Closure Type: primary Specimen(s): none sent Implants & Drains: Chris and Nephew 6 hole 1/3 tubular locking plate on the fibula. 2.7 lag screw (2) 4.0 mm cannulated lag screws (Synthes) medial malleolus (1) invsiknot -Chris and Nephew suture button device for syndesmosis stabilization Procedure in detail: In the preoperative holding area, the appropriate limb and sites were marked. The patient was brought to the operating room, placed on operating table and given anesthetic. Following successful levels of anesthesia , the patient was appropriately padded and positioned and secured to the table. A well-padded thigh tourniquet was placed. An SCD was placed on the contralateral leg. For this procedure the patient was positioned supine with a hip bump. The surgical leg was then prepped and draped in the standard sterile fashion. A formal time-out procedure was completed confirming the patient, site and side of surgery and administration of appropriate preoperative antibiotics. All were in agreement. Appropriate implants were available. An Esmarch bandage was used to exsanguinate the limb and the tourniquet was raised on the thigh to 300 mm of mercury and stayed there for 70 min. A posterior lateral incision was made just posterior to the fibula and dissection was carried through the skin subcutaneous tissue to the level of the peroneal sheath. The peroneal sheath was opened and the tendons/ muscle were retracted posterior. The lateral malleolus fracture was exposed and cleaned of debris. The tibiotalar joint was irrigated and small debris was removed. The fracture was then reduced, restoring length rotation anatomic alignment. This was temporarily held with a K-wire and reduction clamp. The fracture was stabilized with a 2.7 lag screw perpendicular to the fracture. This anatomically reduced the fracture and then a 1/3 tubular locking neutralization plate was placed and secured in the standard fashion with nonlocking cortical screws proximally and locking screws distally. Attention was then turned to the medial side of the joint. A standard medial approach to the medial malleolus was made. The saphenous nerve and vein were protected. The periosteum was reflected at the fracture site and this was cleaned out and again the joint was irrigated of debris and then the medial malleolus fracture was reduced with a pointed reduction clamp. There was a small area of scuffing on the medial talar dome this was not full-thickness damage. It was gently debrided. Additionally at the posterior aspect of the medial malleolus the level of the fracture the posterior tibialis tendon was visualized and there was a small than 25% tear of the sheath and into the tendon. A figure-eight Vicryl suture was placed in the posterior tibialis tendon repairing the small laceration. Next, the medial malleolus fracture was reduced and held with a reduction clamp. Two parallel K-wires were then placed in the alignment was checked on x-rays to confirm adequate positioning. Wires were then sequentially overdrilled and (2)4.0 mm Synthes cannulated lag screws were placed length 46 mm. Anatomic alignment and reduction was obtained. Attention was then turned to the syndesmosis. The syndesmosis was stressed under fluoroscopy and with the Cotton test. This was also directly visualized. This was felt to unstable, with most instability in the a to P direction. Therefore the syndesmosis was stabilized with a Chris and Nephew in invisiknot suture button device. Stability was confirmed under fluoro. There was adequate alignment of the small posterior malleolus fracture, so this was treated closed. Wounds were irrigated. I was quite satisfied with result clinically and radiographically. Tourniquet was released and hemostasis was achieved. Deep tissue closure was obtained with 2 O Vicryl and subcutaneous closure with 4 -0Monocryl and skin with 3-O nylon. A Sterile bulky dressing with Rhodes cotton and a U splint were applied. All counts were correct. The patient was then awoken from anesthesia and transferred to recovery room in good condition. Plan for aftercare: The patient will be nonweightbearing on the left lower extremity. They will start taking 325 mg of aspirin daily for DVT prophylaxis x6 weeks. Patient will follow up in approximately 2 weeks for wound check and suture removal and x-ray. At that time they will go into a boot versus a cast but continue to be nonweightbearing. They will start progressive weight- bearing approx 12 weeks postop for diabetic ankle fracture. The patient will also follow up with her PCP regarding her diabetes management.
[2018-01-13 11:33] LABS: Hemoglobin A1C% w Est Avg Glu 7.5 % (4.0-6.0)
--- NOTE | 2018-01-13 12:49 | DIET.PN ---
Abe/Mandi left voicemail that patient was approved for OBS. SW notified UR nurse.
[2018-01-13] MEDS: LACTATED RINGERS 1,000 ML 42 ML IV ×2 (14:36→19:21)
[2018-01-13] MEDS: fentaNYL 100 MCG/2 ML INJ 50 MCG IV (15:18)
[2018-01-13] MEDS: MIDAZOLAM 2 MG/2 ML VIAL 1 MG IV (15:18)
[2018-01-13] MEDS: CEFAZOLIN 2 GM/100 ML FROZ.PIGGY IV (15:35)
--- NOTE | 2018-01-13 16:07 | P.PCN_ITS ---
Procedures Date/Time Date of procedure: 01/13/18 Time of procedure: 15:30 Nerve Block Time out performed: Yes Local anesthetic used: lidocaine 1% (w/ epi 5mL + 15mL 0.5 opivacaine) Location of anesthetic used: adductor canal Amount of anesthesia used (mL): 20 Nerve blocks: femoral (adductor canal) Procedure successful: Yes Patient tolerated procedure: well Complications: none Additional comments: Adductor canal block for post operative pain management, as requested by surgeon. R/B discussed. Site marked. Consent verified/ signed. Standard ASA monitors. NC O2. Chloroprep. Sterile technique. Femoral A/V/N identified medial mid thigh with US. Lidocaine skin wheal. 100mm x 21g Pajunk needle advanced with in-plane US guidance. Negative aspiration. LA injected medial and lateral to femoral artery. Negative aspiration throughout. No pain, no paresthesia with injection. VSS. Tolerated well. To OR.
--- NOTE | 2018-01-13 16:08 | PM.PROC.1 ---
Procedures Date/Time Date of procedure: 01/13/18 Time of procedure: 15:30 Nerve Block Time out performed: Yes Local anesthetic used: lidocaine 1% (w/ epi 5mL + 15mL 0.5pivacaine) Location of anesthetic used: lateral politeal Amount of anesthesia used (mL): 20 Nerve blocks: other (lateral popliteal sciatic) Procedure successful: Yes Patient tolerated procedure: well Complications: none Additional comments: Lateral popliteal sciatic nerve block for post operative pain management as requested by surgeon. R/B discussed. Site marked. Consent verified/signed. Standard ASA monitors. NC O2. Chloroprep. Sterile technique. Sciatic nerve identified at bifurcation to common peroneal and tibial. Lidocaine skin wheal. 100mm x 21g Pajunk needle advanced with in-plane US guidance. Negative aspiration. LA injected. Negative aspiration throughout. No pain, no paresthesia with injection. VSS. Tolerated well. To OR.
--- NOTE | 2018-01-13 16:11 | P.PCN_ITS ---
Procedures Date/Time Date of procedure: 01/13/18 Time of procedure: 15:30 Nerve Block Time out performed: Yes Local anesthetic used: lidocaine 1% (w/ epi 5mL + 15mL 0.5 opivacaine) Location of anesthetic used: lateral politeal Amount of anesthesia used (mL): 20 Nerve blocks: other (lateral popliteal sciatic) Procedure successful: Yes Patient tolerated procedure: well Complications: none Additional comments: Lateral popliteal sciatic nerve block for post operative pain management as requested by surgeon. R/B discussed. Site marked. Consent verified/signed. Standard ASA monitors. NC O2. Chloroprep. Sterile technique. Sciatic nerve identified at bifurcation to common peroneal and tibial. Lidocaine skin wheal. 100mm x 21g Pajunk needle advanced with in- plane US guidance. Negative aspiration. LA injected. Negative aspiration throughout. No pain, no paresthesia with injection. VSS. Tolerated well. To OR.
--- NOTE | 2018-01-13 16:21 | SUR.OPER ---
Supine on padded OR bed, head on pillow, arms secured on padded arm boards at <90 degrees abduction, legs uncrossed, safety belt at thigh, tape over blanket over lower legs. Supine on padded OR bed, head on pillow, arms secured on padded arm boards at <90 degrees abduction, legs uncrossed, safety belt at thigh, tape over blanket over lower legs.
--- NOTE | 2018-01-13 16:55 | SUR.OPER ---
BLOOD SUGAR 240 AT 1700
--- NOTE | 2018-01-13 17:41 | SUR.HOLD ---
Block start time [1518] . Monitoring initiated and maintained throughout procedure. Oxygen and medications given per anesthesiologist instructions. Patient remained stable throughout procedure, no adverse reactions noted. Block end time [1533].
--- NOTE | 2018-01-13 18:44 | P.PN_ITS ---
Subjective Date Patient Seen: 01/13/18 Time Patient Seen: 18:41 Interval history: Postop day 0 left trimalleolar ankle open reduction internal fixation. Exam Vital Signs (past 8 hours): - 01/13/18 13:05 01/13/18 14:36 01/13/18 18:33 Temperature 99.0 F 97.9 F 97.0 F L Pulse Rate 92 H 90 101 H Respiratory Rate 16 16 12 Blood Pressure 139/69 157/87 H 130/77 Pulse Oximetry 97 97 94 Oxygen Delivery Method Nasal Cannula Narrative Exam Narrative: Patient seen in PACU. Stable alert and oriented. Respiratory nonlabored on room air. Cardiac regular rate and rhythm. Musculoskeletal examination. Left lower extremity in splint clean dry and intact. Patient had regional block and decreased sensation and motor secondary to that. Objective Labs Result Diagrams: 01/13/18 00:35 01/13/18 00:35 Labs: Laboratory Results - last 24 hr 01/13/18 01/13/18 01/13/18 00:35 00:35 11:11 WBC 12.9 H RBC 4.51 Hgb 13.3 Hct 39.1 MCV 86.8 MCH 29.5 MCHC 34.0 RDW 13.0 Plt Count 354 Neut % (Auto) 64.8 Lymph % (Auto) 26.9 Glascock % (Auto) 6.9 Eos % (Auto) 0.7 L Baso % (Auto) 0.7 Neut # (Auto) 8300 H Sodium 141 Potassium 4.0 Chloride 106 Carbon Dioxide 23 BUN 19 H Creatinine 0.70 Estimated GFR > 60.0 BUN/Creatinine Ratio 27.1 H Glucose 164 H Hemoglobin A1c 7.5 H Calcium 9.7 Total Bilirubin 0.6 AST 27 ALT 27 Alkaline Phosphatase 85 Total Protein 7.1 Albumin 4.4 Globulin 2.7 Albumin/Globulin Ratio 1.6 Assessment & Plan Post-op (1) Closed trimalleolar fracture of left ankle: Problem details: Left closed trimalleolar ankle fracture. Status post open reduction internal fixation. Nonweightbearing left lower extremity times 12 weeks for diabetic ankle fracture. Will start 325 mg aspirin once daily on postop day 1. Will have oxycodone and Tylenol for pain control. Will be up with physical therapy postop day 1 and discharged home postop day 1. Follow-up in [address] Babb Current Visit: Yes Status: Acute (2) Diabetes type 2, controlled: Problem details: Will monitor blood glucose. Patient is not currently take any medication will be on diabetic diet. hemoglobin A1c 7.5. Discussed that diabetic status is a risk factor for wound healing and bone healing problems and may require prolonged nonweightbearing status. Sliding-scale insulin in the hospital patient will follow up with PCP Dr. Rahman for diabetic care. Patient counseled on the importance of glycemic control. Current Visit: Yes Status: Acute Postoperative Procedures Operation Date: 01/13/18 13:45 Actual Procedures Side Surgeon p ORIF Ankle Fracture Left Yudith Babb MD Quality VTE Deep Vein Thrombosis/Pulmonary Embolism Present on Admission: No
[2018-01-13] MEDS: hydrOXYzine pamoate 25 MG CAPSULE PO (19:11)
[2018-01-13] MEDS: INSULIN ASPART 100 UNIT/ML INSULN PEN SUBCUT (21:38)
[2018-01-13] MEDS: DOCUSATE 100 MG CAPSULE PO (21:39)
[2018-01-13] MEDS: ACETAMINOPHEN 325 MG TABLET 975 MG PO (21:39)
[2018-01-14 00:15] VITALS: BP 128/66; PULSE 87; RESP 16; TEMP 37; O2SAT 95
[2018-01-14] MEDS: OXYCODONE IR 5 MG TABLET PO ×2 (01:44→04:50)
[2018-01-14 03:16] VITALS: BP 137/66; PULSE 95; RESP 16; TEMP 36.9; O2SAT 96
[2018-01-14] MEDS: MORPHINE 4 MG/ML INJ 0.5 MG IV ×2 (06:36→07:50)
--- NOTE | 2018-01-14 07:48 | P.DS_ITS ---
History of Present Illness Date Patient Seen: 01/14/18 Chief complaint: LEFT ANKLE INJURY Narrative: Patient seen bedside s/p ORIF of the left ankle POD #1. Patient doing well, pain is well controlled, she has yet to work with PT. She would like to go home today. Discharge Providers Date of admission: 01/12/18 23:51 Consults: 01/13/18 20:24 Consult to Discharge Planning Routine Comment: Consult to Physical Therapy Evaluate & Treat Comment: PATRICE HAZEL Physician Instructions: Evaluate and Treat Consult to Respiratory Therapy Evaluate & Treat Comment: Physician Instructions: Evaluate and treat Discharge provider: Jeniffer Grier PA-C Summary Discharge Diagnosis: left bimalleolar ankle fracture Hospital Course: Patient was admitted to the hospital on 01/12/18 with a left bimalleolar ankle fracture. Patient was taken to surgery for a left ankle ORIF on 01/13/18. Patient tolerated the procedure well and was transferred to the acute care floor. Patient was seen by PT who recommended discharge home. Patient was stable and ready for d/c on 01/14/18. Status at Discharge Cognitive/behavioral status at discharge: A&Ox4 Functional status at discharge: uses cane/walker Overall status at discharge: patient is progressing back to baseline Time Spent with Patient Less than 30 minutes Exam Vital Signs (past 8 hours): - 01/14/18 00:15 01/14/18 03:16 Temperature 98.6 F 98.5 F Pulse Rate 87 95 H Respiratory Rate 16 16 Blood Pressure 128/66 137/66 Pulse Oximetry 95 96 Oxygen Delivery Method Room Air Narrative Exam Narrative: Well-developed well-nourished no acute distress. Patient alert oriented x3. Left lower extremity posterior splint is clean dry and intact patient is neurovascularly intact in this extremity with full sensation to touch. She has cap refill less than 2 sec. She has full range of motion of the left knee. Objective Labs Result Diagrams: 01/13/18 00:35 01/13/18 00:35 Labs: Laboratory Results - last 24 hr 01/13/18 11:11 Hemoglobin A1c 7.5 H Discharge Plan Discharge Plan Patient Disposition: Home Discharge Med Rec/Prescriptions Prescriptions: New aspirin 325 mg tablet 325 mg PO DAILY Qty: 42 RF: 0 docusate sodium [Colace] 100 mg capsule 100 mg PO BID Qty: 30 RF: 0 ondansetron 4 mg tablet,disintegrating 4 mg PO Q8-12H PRN (Reason: nausea and vomiting) Qty: 7 RF: 1 oxycodone 5 mg tablet 5 mg PO Q4H PRN (Reason: pain) Qty: 40 RF: 0 walker Misc Qty: 1 RF: 0 Follow up/Referrals: Yudith Babb MD [Physician] - (Follow up in 2 weeks in the office. Please call to make an appointment.) Provider Discharge Instructions Diet: Carb-consistent/Diabetic Activity: Nonweightbearing left lower extremity. Elevate lower extremity above heart level Skin/Wound/Dressing Care Report to your healthcare provider any signs of infection, such as:: chills, fever, night sweats, increased pain and unusual drainage Dressing: Keep dressing and splint clean dry and intact until follow-up. Elevate lower extremity above heart level Visit Report/Discharge Packet Instructions: DI for Open Reduction Internal Fixation Surgery, Stool Softeners , Ondansetron, Oxycodone, Aspirin Visit Report Forms: Stroke Signs & Symptoms Discharge Data Attending Provider: Terrie Piper Admit Date/Time: 01/12/18 23:51 Discharges patient from system. Discharge Date/Time: 01/14/18 14:30 Quality VTE Deep Vein Thrombosis/Pulmonary Embolism Present on Admission: No
[2018-01-14 08:00] VITALS: BP 111/69; PULSE 76; RESP 16; TEMP 36.9; O2SAT 95
[2018-01-14] MEDS: INSULIN ASPART 100 UNIT/ML INSULN PEN SUBCUT ×2 (08:32→12:14)
[2018-01-14] MEDS: ACETAMINOPHEN 325 MG TABLET 975 MG PO ×2 (08:33→14:16)
[2018-01-14] MEDS: ASPIRIN EC 325 MG TABLET PO (08:34)
[2018-01-14] MEDS: DOCUSATE 100 MG CAPSULE PO (08:34)
[2018-01-14] MEDS: OXYCODONE IR 10 MG TABLET PO ×3 (08:35→14:16)
--- NOTE | 2018-01-14 09:10 | PT.IIE ---
Current Diagnoses Type 2 diabetes mellitus without complications (01/12/18) Displaced trimalleolar fracture of left lower leg, initial encounter for closed fracture (01/12/18) Surgery Performed Operation Date: 01/13/18 13:45 Actual Procedures p ORIF Ankle Fracture(Left) - Yudith Babb MD Surgical History (Last Updated 01/13/18 @ 08:59 by Yudith Babb MD) History of bowel resection (Acute) Medical History (Last Updated 01/13/18 @ 14:43 by Kieran Arias) Closed trimalleolar fracture of left ankle (Acute) Diabetes type 2, controlled (Acute) Diabetes type 2, controlled (Acute) Pancreatitis (Acute) Physical Therapy Inpatient Evaluation/Re-Eval M1 PT/OT-IP Prior Functional Status Start: 01/14/18 11:45 Freq: NEEDED Status: Active Protocol: Document 01/14/18 09:10 AB (Rec: 01/14/18 12:25 AB [id number]) Medical Review Prior Functional Status Medical History Reviewed Yes Communication able to make needs known Prior Functional Level (Other details) pt stated that she is independet with all mobilities and ambulation without AD Social History Household Members spouse Living Arrangements House Number of Floors (Floors) Two Floors Number of Stairs To Enter/Railing? 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 M2 PT-IP Current Condition Start: 01/14/18 11:45 Freq: NEEDED Status: Active Protocol: Document 01/14/18 09:10 AB (Rec: 01/14/18 12:25 AB [id number]) Physical Therapy Current Condition Current Condition Evaluation Date 01/14/18 Treatment Diagnosis L trimalleolar ankle fracture s/p ORIF; difficulty in walking Onset Date 01/12/18 Precautions Brace L ankle on soft cast Weight Bearing Status Weight Bearing Status Non-Weight Bearing M3 PT-IP Subjective Start: 01/14/18 11:45 Freq: NEEDED Status: Active Protocol: Document 01/14/18 09:10 AB (Rec: 01/14/18 12:25 AB [id number]) Subjective Physical Therapy Visit Type Type Initial Evaluation Visit Start Time 09:10 Visit Stop Time 10:10 Total Visit Minutes 60 Number of THERMOSCREW OPERATOR Visits 0 Physical Therapy Visit Comments Patient Comments pt agreeable to do therapy Therapy Pain Assessment Pain When Pain Assessed At Rest Pain Present Pain Present Pain Reported Location Left Ankle Intensity 6 Scale Used Numeric (1 - 10) Pain Management Techniques Apply Cold Re-positioning Timing of Activity with Medications M4 PT-IP Mobility and Gait Start: 01/14/18 11:45 Freq: NEEDED Status: Active Protocol: Document 01/14/18 09:10 AB (Rec: 01/14/18 12:25 AB [id number]) PT-Bed Mobility Assessment Supine to Sit Supine to Sit Standby Assistance Sit to Supine Sit to Supine Standby Assistance Scooting Scooting to Edge of Bed Standby Assistance PT-Transfer Assessment Sit to and From Stand Sit to and from Stand Contact Guard Assistance Equipment Transfer Assistive Device Gait Belt Front Wheeled Walker Orthotic/Prosthetic Devices or Brace: Yes Transfers Transfer Destination Toilet Transfer Technique pt ambulated to the toilet using FWW Transfer Ability Level of Assist Minimal Assistance Comments Mobility Comments attempted use of bilateral crutches but pt unable. completed sit <>stand requiring mod A and pt unable to balance self and has to sit down after ~ 3 sec of standing. Attempted 2 more time but pt unable to maintain standing balance. assessed use of FWW instead and pt able to ambulated NWB to the toilet. Gait Assessment Gait Gait Assistance Required: Minimum Assistance Distance (Feet) (feet) 12 Able to Maintain Weight Bearing Status Yes During Gait Assistive Devices Assistive Device Gait Belt Front Wheeled Walker Orthotic/Prosthetic Devices or Brace: Yes Factors Limiting Gait Function Factors Limiting Gait Function Decreased Activity Tolerance Decreased Strength Pain Poor Balance Poor Safety Awareness Comments Gait Comments pt is NWB on LLE pt ambulated from bed to the toilet using FWW min A and cues, NWB on LLE. pt ambulated from the toilet to the chair using FWW min A and cues. Stair Climbing Assessment Comments Stair Climbing Comments pt is not appropriate to do stair climbing at this time due to decrease strength and standing balance and safety is a concern. PT-Balance Assessment Sitting Balance and Reactions Static Sitting Balance Ability Good Dynamic Sitting Balance Ability Good Standing Balance and Reactions Static Standing Balance Ability Fair Dynamic Standing Balance Ability Poor Device Used FWW M5 PT-IP Objective Assessments Start: 01/14/18 11:45 Freq: NEEDED Status: Active Protocol: Document 01/14/18 09:10 AB (Rec: 01/14/18 12:25 AB [id number]) Orientation Orientation/Cognition Level of Alertness Alert Orientation Name Age Birthday Month Date Year Day of Week Place Situation Safety Awareness Understands Safety Issues Gross Range of Motion Lower Extremity ROM Assessment Left Impaired Impairments L foot on soft cast Strength Lower Extremity Strength Assessment Bilaterally Impaired Muscle Tone Muscle Tone WNL Yes M6 PT-IP Treatment Start: 01/14/18 11:45 Freq: NEEDED Status: Active Protocol: Document 01/14/18 09:10 AB (Rec: 01/14/18 12:25 AB [id number]) Physical Therapy Treatment Education Education Provided Precautions Weight Bearing Status Post-Op Packet Safety M7 PT-IP Assessment and Plan Start: 01/14/18 11:45 Freq: NEEDED Status: Active Protocol: Document 01/14/18 09:10 AB (Rec: 01/14/18 12:25 AB [id number]) PT Summary Assessment and Plan Potential Rehabilitation Potential Fair Status of Condition at Evaluation Evolving Summary Impairments Pain ROM Strength Balance Coordination Sensation Bed Mobility Transfers Gait Activity Tolerance Assessment Summary pt requiring one person assist with mobility. recommending use of FWW for short distance mobility but pt will also require a manual w/c and a bedside commode. informed pt regarding options for stair climbing as pt is not appropriate to do stairs at this time. stated that her spouse should be able to push her in with a w/c. pt is determined to go home. given instructions and DME list for equipement needs. talked to rn case manager hospice regarding pt needs. Goals Bed Mobility Goal Standby Assistance Transfer Goal Standby Assistance Gait Goal Standby Assistance Gait Distance 50 Other Goals up/down 6 steps with appropriate AD Days to Meet Goals 3 Frequency of Treatment Frequency Of Treatment Twice a Day Treatment Plan Physical Therapy Treatment Plan Bed Mobility Training Transfer Training Gait Training Therapeutic Exercise Balance Retraining Post Op Education Discharge Planning Hot or Cold Pack Neuromuscular Re-ed Coordination Retraining Manual Therapy Other Recommendations and Next Treatment caregiver training Focus Recommendations To Nursing Amount of Assist Needed 1 Person Assist Discharge Recommendations PT Discharge Recommendations Home with Assistance Home Health Equipment Needed for Home Before FWW, w/c, commode Discharge
--- NOTE | 2018-01-14 09:29 | PC.NURSE ---
Addendum entered by Helen Leyva R.N. 01/14/18 14:29: DC - after phys therapy completed, reviewed dc instructions with pt and spouse, scripts were filled prior to dc by spouse, before tsf, given 10mg oxycodone and 975mg tylenol, belongings gathered, including cell phone, glasses, a priority board was provided, and fww dispensed from phys therapy. Tsf to [place] and escorted to car by asbestos hazard abatement worker. hep lock dc'd earlier. Original Note: Addendum entered by Helen Leyva R.N. 01/14/18 13:57: MS - phys therapy in for addl instructions and practice using crutches with pt and spouse. Original Note: Addendum entered by Helen Leyva R.N. 01/14/18 11:01: MS/PAIN - Up to chair w/phys therapy, lle elev pillow support, states earlier oxycodone providing adequate relief. Original Note: AM NOTE - awake, appears restless and uncomfortable in bed, states pain 8 on scale 0/10, Jeniffer NIX in this am and will incr oxycodone to 10mg, given 0.5mg iv morphine now, added addl pillow support to l ankle, visible toes lle are pink and able to wiggle, cast w/violette wrap over, cdi, ra 95%, with breakfast no nausea, discussed constipation and narcotic use, given 10mg po oxycodone, plan will be to dc home today, family will be coming over from [place], most likely leave late afternoon or early charis ferr.
--- NOTE | 2018-01-14 12:14 | CM.DPC ---
DCP Cont: Patient is to be discharged home today. Put an order in for patient to have a walker, per physical therapy request. Is suggesting that patient have home health for physical therapy. Let patient know that [facility] is the only one that goes out to the [facility]. Called Dr. Babb's office, spoke to triage nurse, since face to face needs to be signed. Let her know that it was urgent. Faxed face to face to her and asked that she sign and fax back. P: Patient is to go home today, will need home therapy. Giselle Pope RN/Precision Lathe Operator
--- NOTE | 2018-01-14 14:54 | CM.DPC ---
DCP Cont: Patient discharging today. Did get face to face signed, and consulted with [facility]. Faxed her orders and clinical notes. Stated that the soonest that they could get out there is Saturday. Patient just left, [place] ferry. Left her and a voice mail as to when to expect physical therapy. Also provided them their phone number. P: Patient discharged, is expected to get physical therapy Saturday. Giselle Pope RN/News Photographer
--- NOTE | 2018-01-14 16:52 | PT.IPTN ---
Current Diagnoses Type 2 diabetes mellitus without complications (01/12/18) Displaced trimalleolar fracture of left lower leg, initial encounter for closed fracture (01/12/18) Surgery Performed Operation Date: 01/13/18 13:45 Actual Procedures p ORIF Ankle Fracture(Left) - Yudith Babb MD Physical Therapy Treatment Note M2 PT-IP Current Condition Start: 01/14/18 11:45 Freq: NEEDED Status: Discharge Protocol: Document 01/14/18 09:10 AB (Rec: 01/14/18 12:25 AB [id number]) Physical Therapy Current Condition Current Condition Evaluation Date 01/14/18 Treatment Diagnosis L trimalleolar ankle fracture s/p ORIF; difficulty in walking Onset Date 01/12/18 Precautions Brace L ankle on soft cast Weight Bearing Status Weight Bearing Status Non-Weight Bearing M3 PT-IP Subjective Start: 01/14/18 11:45 Freq: NEEDED Status: Discharge Protocol: Document 01/14/18 13:30 AB (Rec: 01/14/18 14:47 AB [id number]) Subjective Physical Therapy Visit Type Type Treatment Note Visit Start Time 13:30 Visit Stop Time 14:16 Total Visit Minutes 46 Number of PIN GAME MACHINE INSPECTOR Visits 0 Physical Therapy Visit Comments Patient Comments pt wanted to try crutches again. spouse present Therapy Pain Assessment Pain When Pain Assessed At Rest Pain Present Pain Present Pain Reported Location Left Ankle Scale Used pain scale not stated Pain Management Techniques Re-positioning Timing of Activity with Medications M4 PT-IP Mobility and Gait Start: 01/14/18 11:45 Freq: NEEDED Status: Discharge Protocol: Document 01/14/18 13:30 AB (Rec: 01/14/18 14:47 AB [id number]) PT-Bed Mobility Assessment Sit to Supine Sit to Supine Standby Assistance Scooting Scooting to Edge of Bed Standby Assistance PT-Transfer Assessment Sit to and From Stand Sit to and from Stand Contact Guard Assistance Use of Upper Extremities Equipment Transfer Assistive Device Front Wheeled Walker Axillary Crutches Orthotic/Prosthetic Devices or Brace: Yes Transfers Transfer Destination Bed Chair Transfer Technique pt ambulated to the bed using bilateral crutches and completed with FWW Comments Mobility Comments pt wanted to try use of crutches again. pt completed sit to stand min A with LOB with initial standing using bilateral crutches requiring mod A and cues for steadiness. pt ambulated towards the bed using bilateral crutches mod A and cues with pt demonstrating unsteadiness and occasionally R foot catches on the floor. assessed use of FWW and educated pt regarding safety and stability. pt and spouse agreed that FWW is safer for pt to use at this time. caregiver training conducted. educated spouse on how to use safety belt and how to assist pt and spouse was able to assist pt with ambulation using FWW. attempted up/down 1 step with CLINICAL NURSE SPECIALIST x 2 but pt unable to get up the step. spouse stated that he can lift pt up and together with his son will be able to get pt into the house. spouse plans to get a ramp in and a w/c for pt. M5 PT-IP Objective Assessments Start: 01/14/18 11:45 Freq: NEEDED Status: Discharge Protocol: Document 01/14/18 09:10 AB (Rec: 01/14/18 12:25 AB [id number]) Orientation Orientation/Cognition Level of Alertness Alert Orientation Name Age Birthday Month Date Year Day of Week Place Situation Safety Awareness Understands Safety Issues Gross Range of Motion Lower Extremity ROM Assessment Left Impaired Impairments L foot on soft cast Strength Lower Extremity Strength Assessment Bilaterally Impaired Muscle Tone Muscle Tone WNL Yes M6 PT-IP Treatment Start: 01/14/18 11:45 Freq: NEEDED Status: Discharge Protocol: Document 01/14/18 13:30 AB (Rec: 01/14/18 14:47 AB [id number]) Physical Therapy Treatment Education Education Provided Precautions Weight Bearing Status Safety Equipment Issued Equipment Type and Company FWW dispensed from [facility]. pt signed papers. M7 PT-IP Assessment and Plan Start: 01/14/18 11:45 Freq: NEEDED Status: Discharge Protocol: Document 01/14/18 13:30 AB (Rec: 01/14/18 14:47 AB [id number]) PT Summary Assessment and Plan Potential Rehabilitation Potential Fair Summary Impairments Pain ROM Strength Balance Coordination Tone Cognition Bed Mobility Transfers Gait Activity Tolerance Progress Towards Goals Slow Progress due to Activity Tolerance Assessment Summary pt requiring one person assist with mobility. pt will have family to assist her at home. caregiver training conducted with spouse. unable to safely complete up/down steps but pt 's spouse stated that he can carry pt up with the help of his son and plan to have a ramp in place and also acquire a w/c. Goals Bed Mobility Goal Standby Assistance Transfer Goal Standby Assistance Gait Goal Standby Assistance Gait Distance 50 Other Goals up/down 6 steps with appropriate AD Days to Meet Goals 3 Frequency of Treatment Frequency Of Treatment Twice a Day Treatment Plan Physical Therapy Treatment Plan Bed Mobility Training Transfer Training Gait Training Therapeutic Exercise Balance Retraining Post Op Education Discharge Planning Hot or Cold Pack Neuromuscular Re-ed Coordination Retraining Manual Therapy Other Recommendations and Next Treatment caregiver training Focus Recommendations To Nursing Amount of Assist Needed 1 Person Assist Discharge Recommendations PT Discharge Recommendations Home with Assistance Home Health Equipment Needed for Home Before FWW, w/c, commode Discharge
== END 2018-01-14 14:30 | disposition home or self-care (01) ==
LOC: ED 23:51 → AC 23:52
PROVIDERS: Orthopaedic Surgery Foot and Ankle Surgery; Admitting Provider Orthopaedic Surgery Orthopaedic Surgery of the Spine; Emergency Provider Emergency Medicine; Visit Provider Orthopaedic Surgery Orthopaedic Surgery of the Spine
PROC: (CPT 27822; principal; 2018-01-13 13:45)
DX: S82.852A Displaced trimalleolar fracture of left lower leg, initial encounter for closed fracture (principal); W01.0XXA Fall on same level from slipping, tripping and stumbling without subsequent striking against object, initial encounter; E11.9 Type 2 diabetes mellitus without complications
CPT/HCPCS: 27822; 36415; 36591; 64450; 71045; 73590; 73600; 73610; 73630; 73700; 76001; 80053; 82962; 83036; 85025; 93005; 93010; 97162; 97530; 99281; 99285; G0378; J0690; J2250; J2270; J3010

== ENCOUNTER → 2019-03-12 15:28 | Outpatient (CLI) | payer OTHER, SELFPAY ==
[2018-01-13 01:58] VITALS: BMI 30.4
--- NOTE | 2019-03-12 | DI.MG.S_ITS ---
BILATERAL DIGITAL SCREENING MAMMOGRAM 3D/2D WITH CAD: 03/12/2019 CLINICAL: Routine screening. Family history of breast cancer. Comparison is made to exam dated: 10/04/2016 mammogram - [facility]. There are scattered fibroglandular elements in both breasts. Current study was also evaluated with a Computer Aided Detection (CAD) system. No significant masses, calcifications, or other findings are seen in either breast. There has been no significant interval change. IMPRESSION: NEGATIVE There is no mammographic evidence of malignancy. A 1 year screening mammogram is recommended. This exam was interpreted at Station ID: [id number]. NOTE: For mammograms, a report in lay terms will be sent to the patient. Approximately 15% of breast malignancies will not be visualized mammographically. In the management of a palpable breast mass, a negative mammogram must not discourage biopsy of a clinically suspicious lesion. Electronically Signed By: Asif britt/zay:03/12/2019 17:07:34 letter sent: Normal Exam ACR BI-RADS Category 1: Negative [id number]
== END ==
PROVIDERS: Visit Provider Family Medicine
DX: Z12.31 Encounter for screening mammogram for malignant neoplasm of breast (principal); Z80.3 Family history of malignant neoplasm of breast
CPT/HCPCS: 77063; 77067

== ENCOUNTER 2023-07-12 15:40 | Emergency (ER) | payer SELFPAY ==
[2023-07-12 15:40] VITALS: BMI 30.4
[2023-07-12 15:42] VITALS: BP 190/89; PULSE 99; RESP 22; TEMP 36.2; O2SAT 100; BMI 26.2
[2023-07-12 16:14] LABS: Add Manual Diff / Slide Review NO; Basophils Absolute Auto 100 /uL (0-100); Basophils Percent Auto 0.8 % (0-2); Eosinophils Absolute Auto 100 /uL (0-450); Eosinophils Percent Auto 0.8 % (2-4); Hematocrit 37.1 % (36-46); Hemoglobin 13.1 g/dL (12.0-16.0); Lymphocytes Absolute Auto 3400 /uL (1100-4500); Lymphocytes Percent Auto 32.8 % (25-40); Mean Corpuscular HGB Conc 35.3 % (30-36); Mean Corpuscular Hemoglobin 29.9 PG (26-34); Mean Corpuscular Volume 84.6 fL (80-100); Monocytes Absolute Auto 900 /uL (0-900); Monocytes Percent Auto 8.4 % (3-14); Neutrophils Absolute Auto 6000 /uL (1500-7000); Neutrophils Percent Auto 57.2 % (50-75); Platelet Count 365 X10^3/uL (150-400); Red Blood Cell Count 4.39 X10^6/uL (4.0-5.2); White Blood Cell Count 10.4 X10^3/uL (4.5-11.0)
[2023-07-12 16:24] LABS: Urine Volume Low Vol <10mL (spun)
[2023-07-12 16:24] LABS: Alanine Aminotransferase 19 IU/L (<35); Albumin 4.4 g/dL (3.5-5.0); Albumin Globulin Ratio 1.4 (1.0-2.8); Alkaline Phosphatase 70 U/L (38-126); Aspartate Aminotransferase 23 IU/L (14-36); BUN Creatinine Ratio 12.8 (6-22); Bilirubin Total 0.8 mg/dL (0.2-1.3); Blood Urea Nitrogen 14 mg/dL (7-17); Carbon Dioxide 24 mmol/L (22-32); Chloride 99 mmol/L (98-107); Estimated Glomerular Filt Rate 57 mL/min (>60); Globulin 3.2 g/dL (1.7-4.1); Glucose 253 mg/dL (80-110); HEMOLYSIS < 15 (0-50); Lipase 221 U/L (23-300); Potassium 4.1 mmol/L (3.4-5.1); Sodium 132 mmol/L (137-145); Total Protein 7.6 g/dL (6.3-8.2)
[2023-07-12 16:25] LABS: Bacteria Urine Occasional (0-1); Culture Indicated Urine Specimen Cultured; Hyaline Casts Urine 1-5/LPF; Mucus Urine 1+ (Negative); RBC Urine 0-1/HPF (0-5/HPF); Squamous Epithelial Cell Urine 5-10 /HPF (0-5/HPF); WBC Urine 5-10/HPF (0-5/HPF)
--- NOTE | 2023-07-12 19:33 | DI.CT.S_ITS ---
PROCEDURE: CT ABDOMEN PELVIS W CON INDICATIONS: 6WKS R SIDE/FLANK PAIN TECHNIQUE: After the administration of intravenous contrast, axial sections acquired from the lung bases to the pubic symphysis. Coronal and sagittal reformats were performed. For radiation dose reduction, the following was used: automated exposure control, adjustment of mA and/or kV according to patient size. COMPARISON: None. FINDINGS: Image quality: Diagnostic. Lower Chest: No significant findings. ABDOMEN: Liver: No solid mass. Hepatic steatosis is seen. Gallbladder: No radiopaque gallstones or wall thickening. Biliary ducts: No biliary dilation. Pancreas: No ductal dilation. Spleen: Size is within normal limits. Adrenal Glands: No adrenal nodules. Kidneys and Ureters: No hydronephrosis. Bilateral extrarenal pelvis are seen. No solid mass. No complex renal cystic lesion which requires follow up. Stomach and Bowel: Postsurgical changes in right colon are seen with intact surgical anastomosis. There is no bowel obstruction. No abnormal bowel wall thickening or mesenteric fat stranding. Fecal stasis in the colon is seen. Postsurgical changes also noted involving rectal sigmoid region. No abscess collection. Peritoneum: No abnormal intraperitoneal fluid. No free air. Ventral Wall: No significant ventral hernia. Abdominal Nodes: No retroperitoneal or mesenteric adenopathy by size criteria. Vessels: Aorta and inferior vena cava are normal in size. PELVIS: Pelvic Organs: Unremarkable. Bladder: No bladder wall thickening, accounting for underdistention. Pelvic Nodes: No enlarged lymph nodes. Miscellaneous: Small bilateral inguinal hernias containing fat only. Bones: No aggressive osseous abnormality. No acute vertebral body compression fracture. IMPRESSION: 1. Postsurgical changes in right colon and rectosigmoid region with intact surgical anastomosis. No abnormal bowel wall thickening. No bowel obstruction. Mild constipation. No free fluid or free air. 2. Small bilateral peripelvic renal cysts. No hydronephrosis or hydroureter. Normal appearing urinary bladder. 3. Mild hepatic steatosis. Dictated by: Danny Anderson M.D. on 07/12/2023 at 20:04 Approved by: Danny Anderson M.D. on 07/12/2023 at 20:08
--- NOTE | 2023-07-12 19:43 | ED.ABDPAIN ---
HPI - Abdominal Pain General Chief Complaint: Abdominal Pain Stated Complaint: states has pancreatitis Time Seen by Provider: 07/12/23 18:01 Source: patient Mode of arrival: Ambulatory History of Present Illness HPI narrative: 63-year-old female with history of diabetes, pancreatitis, endometriosis (severe, requiring hysterectomy and bowel resection x2) presents for 6 weeks of right-sided abdominal/flank pain. Patient states it is constant, intermittently gets worse after eating, does not radiate. Has been taking Tylenol and Motrin at home for symptoms without relief. Patient states that this feels somewhat similar to when she would pancreatitis in the past, and she was hoping that it would resolve on its own, but her symptoms have not improved and so she decided to present today for evaluation. Related Data Previous Rx's Medication Instructions Recorded aspirin 325 mg tablet 325 mg PO DAILY #42 tabs 01/13/18 docusate sodium 100 mg capsule 100 mg PO BID #30 caps 01/13/18 (Colace) ondansetron 4 mg disintegrating 4 mg PO Q8-12H PRN nausea and 01/13/18 tablet vomiting #7 tabs oxycodone 5 mg tablet 5 mg PO Q4H PRN pain #40 tabs 01/13/18 walker ##1 01/14/18 metformin 500 mg tablet 500 mg PO BIDWMEAL #60 tabs 07/12/23 tramadol 50 mg tablet 50 mg PO Q8H PRN pain #14 tabs 07/12/23 Allergies Allergy/AdvReac Type Severity Reaction Status Date / Time codeine AdvReac Nausea Verified 01/13/18 14:30 Review of Systems Review of Systems Narrative: Negative except as noted above Patient History Medical History Pancreatitis Closed trimalleolar fracture of left ankle Diabetes type 2, controlled Diabetes type 2, controlled Surgical History History of bowel resection Social History household members: spouse Smoking Status: Never smoker alcohol intake: never Smoking Status: Never smoker Substance Use Type: does not use Exam Initial Vital Signs Initial Vital Signs: Vital Signs Temperature 97.2 F L 07/12/23 15:42 Pulse Rate 99 H 07/12/23 15:42 Respiratory Rate 22 07/12/23 15:42 Blood Pressure 190/89 H 07/12/23 15:42 Pulse Oximetry 100 07/12/23 15:42 Oxygen Delivery Method Room Air 07/12/23 15:42 Const: Awake, alert, no acute distress, nontoxic appearing Cardiac: regular rate, regular rhythm RESP: unlabored, clear bilaterally, no wheezing GI: Atraumatic, soft, minimal tenderness to deep palpation right upper abdominal quadrant, negative James sign Back: Atraumatic, no CVA tenderness bilaterally MSK: Atraumatic, full range of motion, pulses equal Skin: Warm, Dry, intact, no rashes Neuro: AO x3, CN II-XII grossly intact, moves all extremities Course Orders Ordered: Discontinued Medications Ondansetron HCl (Ondansetron 4 Mg/2 Ml Inj) 4 mg IV NOW PRN PRN Reason: Nausea And Vomiting Ondansetron HCl (Ondansetron 4 Mg Odt) 4 mg PO NOW PRN PRN Reason: Nausea And Vomiting Vital Signs Vital signs: Vital Signs - 8 hr 07/12/23 15:42 Temperature 97.2 F L Pulse Rate 99 H Respiratory Rate 22 Blood Pressure 190/89 H Pulse Oximetry 100 Oxygen Delivery Method Room Air MDM - Abdominal Pain Differential Diagnosis Differential diagnosis: Likely abdominal pain, acute appendicitis and calculus of kidney Lab Data 07/12/23 15:59 07/12/23 15:59 Labs: Lab Results 07/12/23 07/12/23 Range/Units 15:59 16:05 WBC 10.4 (4.5-11.0) X10^3/uL RBC 4.39 (4.0-5.2) X10^6/uL Hgb 13.1 (12.0-16.0) g/dL Hct 37.1 (36-46) % MCV 84.6 (80-100) fL MCH 29.9 (26-34) PG MCHC 35.3 (30-36) % RDW 13.0 (11.6-14.8) % Plt Count 365 (150-400) X10^3/uL Neut % (Auto) 57.2 (50-75) % Lymph % (Auto) 32.8 (25-40) % [place] % (Auto) 8.4 (3-14) % Eos % (Auto) 0.8 L (2-4) % Baso % (Auto) 0.8 (0-2) % Neut # (Auto) 6000 (7163-5291) /uL Lymph # (Auto) 3400 (7692-1194) /uL [place] # (Auto) 900 (0-900) /uL Eos # (Auto) 100 (0-450) /uL Baso # (Auto) 100 (0-100) /uL Sodium 132 L (137-145) mmol/L Potassium 4.1 (3.4-5.1) mmol/L Chloride 99 (98-107) mmol/L Carbon Dioxide 24 (22-32) mmol/L BUN 14 (7-17) mg/dL Creatinine 1.09 H (0.52-1.04) mg/dL Estimated GFR 57 L (>60) mL/min BUN/Creatinine Ratio 12.8 (6-22) Glucose 253 H (80-110) mg/dL Calcium 9.0 (8.4-10.2) mg/dL Total Bilirubin 0.8 (0.2-1.3) mg/dL AST 23 (14-36) IU/L ALT 19 (<35) IU/L Alkaline Phosphatase 70 (38-126) U/L Total Protein 7.6 (6.3-8.2) g/dL Albumin 4.4 (3.5-5.0) g/dL Globulin 3.2 (1.7-4.1) g/dL Albumin/Globulin Ratio 1.4 (1.0-2.8) Lipase 221 (23-300) U/L Urine RBC 0-1/hpf (0-5/HPF) Urine WBC 5-10/hpf H (0-5/HPF) Ur Squamous Epith Cells 5-10 /hpf H (0-5/HPF) Urine Bacteria Occasional (0-1) (None) Hyaline Casts 1-5/lpf (None) Urine Mucus 1+ H (Negative) Ur Culture Indicated? Specimen cultured Vol Urine Centrifuged Low vol <10ml (spun) A Point of care testing: Urine Dip Bedside Urine Glucose Negative Bedside Urine Bilirubin - Negative Bedside Urine Ketone - Negative Urine Specific [place] 1.015 Bedside Urine Occult Blood - Negative Bedside Urine pH 5.5 Bedside Urine Protein - Negative Bedside Urine Urobilinogen - Negative Bedside Urine Nitrite - Negative Bedside Urine Leukocytes + [address] scan - abdomen/pelvis: Radiologist's Impression: PROCEDURE: CT ABDOMEN PELVIS W CON INDICATIONS: 6WKS R SIDE/FLANK PAIN TECHNIQUE: After the administration of intravenous contrast, axial sections acquired from the lung bases to the pubic symphysis. Coronal and sagittal reformats were performed. For radiation dose reduction, the following was used: automated exposure control, adjustment of mA and/or kV according to patient size. COMPARISON: None. FINDINGS: Image quality: Diagnostic. Lower Chest: No significant findings. ABDOMEN: Liver: No solid mass. Hepatic steatosis is seen. Gallbladder: No radiopaque gallstones or wall thickening. Biliary ducts: No biliary dilation. Pancreas: No ductal dilation. Spleen: Size is within normal limits. Adrenal Glands: No adrenal nodules. Kidneys and Ureters: No hydronephrosis. Bilateral extrarenal pelvis are seen. No solid mass. No complex renal cystic lesion which requires follow up. Stomach and Bowel: Postsurgical changes in right colon are seen with intact surgical anastomosis. There is no bowel obstruction. No abnormal bowel wall thickening or mesenteric fat stranding. Fecal stasis in the colon is seen. Postsurgical changes also noted involving rectal sigmoid region. No abscess collection. Peritoneum: No abnormal intraperitoneal fluid. No free air. Ventral Wall: No significant ventral hernia. Abdominal Nodes: No retroperitoneal or mesenteric adenopathy by size criteria. Vessels: Aorta and inferior vena cava are normal in size. PELVIS: Pelvic Organs: Unremarkable. Bladder: No bladder wall thickening, accounting for underdistention. Pelvic Nodes: No enlarged lymph nodes. Miscellaneous: Small bilateral inguinal hernias containing fat only. Bones: No aggressive osseous abnormality. No acute vertebral body compression fracture. IMPRESSION: 1. Postsurgical changes in right colon and rectosigmoid region with intact surgical anastomosis. No abnormal bowel wall thickening. No bowel obstruction. Mild constipation. No free fluid or free air. 2. Small bilateral peripelvic renal cysts. No hydronephrosis or hydroureter. Normal appearing urinary bladder. 3. Mild hepatic steatosis. Dictated by: Danny Anderson M.D. on 07/12/2023 at 20:04 Approved by: Danny Anderson M.D. on 07/12/2023 at 20:08 ECG Data Interpretation: Normal sinus rhythm at 96 beats per minute, normal axis, normal intervals, no ST T wave changes MDM Narrative Medical decision making narrative: Well-appearing patient with several weeks of right-sided pain. Abdomen is soft, there is no significant tenderness on exam, mild tenderness to deep palpation in the right upper quadrant without rebound, guarding, negative James sign. No CVA tenderness bilaterally. Laboratory work is reviewed, increasing kidney function, creatinine 1.09, previous value of 0.7, however this is from 2018 and there were no other recent priors for comparison. Glucose elevated, patient does have history of diabetes and states that due to insurance issues she was not followed up with the primary care physician in quite some time. WBCs present on urinalysis, however squamous cells are also present and without urinary symptoms or CVA tenderness I do not suspect a urinary tract pathology at this time. Lipase within normal limits. CT of the abdomen and pelvis shows postsurgical changes in the right colon without stricture or other abnormalities. Patient and informed of all lab and imaging findings. No obvious explanation for patient's pain, I recommended close PCP and possible GI follow up. Patient states that they do not currently have a primary care physician at this time due to insurance issues but we will work on following up so that they can try to get to the bottom of her pain. Patient discharged on metformin prescription due to diabetes and hyperglycemia without DKA. Discharge Plan Departure Patient Disposition: Home Clinical Impression: Abdominal pain Instructions: DI for Abdominal Pain-Adult Activity Restrictions/Additional Instructions: Your laboratory work and CT imaging today did not show any cause of your right-sided abdominal pain. Your pancreas is normal both on laboratory work and on CT. Your gallbladder appears normal both on labs and CT imaging. You did appear to have a slow-moving: On CT, which may be contributing to your symptoms. I recommend following up with your primary care physician in may be possibly a food safety field specialist to figure out why you may be continuing to have this right-sided pain. A stool softener may be of benefit to help decrease constipation. Your glucose today was slightly elevated, I recommend following up with a primary care doctor. Since your A1c was elevated in 2018 in her blood glucose is elevated today I will prescribe metformin until you can follow with the primary care doctor. Start this 1 time daily and increase to 2 times daily as long as you do not experience abdominal pain or diarrhea. Prescriptions: New tramadol 50 mg tablet 50 mg PO Q8H PRN (Reason: pain) Qty: 14 0RF metformin 500 mg tablet 500 mg PO BIDWMEAL Qty: 60 0RF No Action aspirin 325 mg tablet 325 mg PO DAILY Qty: 42 0RF docusate sodium [Colace] 100 mg capsule 100 mg PO BID Qty: 30 0RF ondansetron 4 mg tablet,disintegrating 4 mg PO Q8-12H PRN (Reason: nausea and vomiting) Qty: 7 1RF oxycodone 5 mg tablet 5 mg PO Q4H PRN (Reason: pain) Qty: 40 0RF (DME) walker Misc Qty: 1 0RF Rx Instructions: As Directed Stand Alone Forms: Patient Portal/API
[2023-07-12 21:13] VITALS: BP 162/76; PULSE 95; RESP 14; O2SAT 100
== END 2023-07-12 21:16 | disposition home or self-care (01) ==
PROVIDERS: Emergency Medicine; Emergency Provider Emergency Medicine
DX: R10.9 Unspecified abdominal pain (principal)
CPT/HCPCS: 36415; 74177; 80053; 81003; 81015; 83690; 85025; 87086; 93005; 93010; 99283; 99284; Q9967